=== PATIENT | female | born 2000 | race Caucasian/White ===

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

== ENCOUNTER 2022-02-12 08:00 | Outpatient (CLI) | payer MEDICAID ==
[2022-02-12 23:29] LABS: CHLAMYDIA TRACHOMATIS DNA NEGATIVE (NEGATIVE); NEISSERIA GONORRHOEAE DNA NEGATIVE (NEGATIVE); TRICHOMONAS VAGINALIS DNA NEGATIVE (NEGATIVE)
== END 2022-02-12 23:59 | disposition home or self-care (01) ==
LOC: LAB.WC 08:00
PROVIDERS: ATTEND Obstetrics & Gynecology
DX: R10.9 Unspecified abdominal pain (principal)
CPT/HCPCS: 87491; 87591; 87661

== ENCOUNTER 2022-03-16 09:52 | Outpatient (CLI) | payer MEDICAID | END 2022-03-16 09:53 | disposition short-term general hospital (02) | LOC: EMS 09:52 | DX: R10.32 Left lower quadrant pain (principal); R10.817 Generalized abdominal tenderness | CPT/HCPCS: A0425; A0427; A0999 ==

== ENCOUNTER 2022-03-24 10:37 | Outpatient (CLI) | payer MEDICAID | END 2022-03-24 10:38 | disposition home or self-care (01) | LOC: LAB 10:37 | PROVIDERS: ATTEND Obstetrics & Gynecology | DX: Z01.812 Encounter for preprocedural laboratory examination (principal); D27.1 Benign neoplasm of left ovary; Z20.822 Contact with and (suspected) exposure to COVID-19 ==

== ENCOUNTER 2022-03-25 07:28 | Day surgery (SDC) | payer MEDICAID ==
[2022-03-25] MEDS ORDERED: LACTATED RINGERS 1,000 ML IV ONE ×2 (07:34→10:27)
[2022-03-25 07:48] LABS: HCG UR QUAL NEGATIVE
[2022-03-25 08:18] LABS: BASOPHILS # (AUTO) 0.1 10^3/uL (0.0-0.1); BASOPHILS % (AUTO) 1.7 %; EOSINOPHILS # (AUTO) 0.9 10^3/uL (0.0-0.7); EOSINOPHILS % (AUTO) 12.8 %; HGB - HEMOGLOBIN 12.4 g/dL (12.0-16.0); LYMPHOCYTES # (AUTO) 1.8 10^3/uL (1.5-3.5); LYMPHOCYTES % (AUTO) 25.7 %; MEAN CORPUSCULAR HEMOGLOBIN 29.5 pg (27.0-31.0); MEAN CORPUSCULAR HGB CONC 33.5 g/dL (32.0-36.0); MEAN CORPUSCULAR VOLUME 87.9 fL (81.0-99.0); MEAN PLATELET VOLUME 9.7 fL (7.9-10.8); MONOCYTES # (AUTO) 0.7 10^3/uL (0.0-1.0); MONOCYTES % (AUTO) 9.8 %; NEUTROPHILS # (AUTO) 3.4 10^3/uL (1.5-6.6); NEUTROPHILS % (AUTO) 49.7 %; PLT - PLATELET COUNT 302 10^3/uL (130-450); RED BLOOD COUNT 4.21 10^6/uL (4.20-5.40); RED CELL DISTRIBUTION WIDTH 13.7 % (12.0-15.0); WHITE BLOOD COUNT 6.9 x10^3/uL (4.8-10.8)
[2022-03-25] MEDS ORDERED: PROPOFOL 200 MG/20 ML VIAL IVP ONE (08:18)
[2022-03-25] MEDS ORDERED: LIDOCAINE-MPF 2% 5 ML VIAL ONE (08:18)
[2022-03-25] MEDS ORDERED: ONDANSETRON 4 MG/2 ML VIAL ONE ×2 (08:19→08:36)
[2022-03-25] MEDS ORDERED: ROCURONIUM 50 MG/5 ML VIAL ONE (08:19)
[2022-03-25] MEDS ORDERED: MIDAZOLAM 2 MG/2 ML VIAL ONE (08:19)
[2022-03-25] MEDS ORDERED: fentaNYL 100 MCG/2 ML VIAL ONE ×2 (08:19→09:19)
[2022-03-25] MEDS ORDERED: DEXAMETHASONE 4 MG/ML VIAL ONE (08:19)
[2022-03-25] MEDS ORDERED: BUPIVACAINE 0.5% PF 30 ML VIAL ONE (08:24)
[2022-03-25] MEDS ORDERED: LIDOCAINE MPF 2%-EPI 1:200000 20 ML VIAL ONE (08:24)
--- NOTE | 2022-03-25 08:56 | ANESTHESIA ---
Pre-Anesthesia VS, & Labs - Diagnosis left dermoid cyst - Procedure laparoscopic ovarian cystectomy Vital Signs: Temp Pulse Resp BP Pulse Ox 36.3 C L 90 16 126/87 H 99 03/25/22 07:34 03/25/22 07:34 03/25/22 07:34 03/25/22 07:34 03/25/22 07:34 Height: 5 ft 8 in Weight (kg): 89.2 kg Body Mass Index: 29.9 BMI Classification: Overweight - NPO >8 hours - Is Patient ?: No - Lab Results Current Lab Results: Laboratory Tests 03/25/22 08:13: WBC 6.9, RBC 4.21, Hgb 12.4, Hct 37.0, MCV 87.9, MCH 29.5, MCHC 33.5, RDW 13.7, Plt Count 302, MPV 9.7, Neut # (Auto) 3.4, Lymph # (Auto) 1.8, [place] # (Auto) 0.7, Eos # (Auto) 0.9 H, Baso # (Auto) 0.1, Absolute Nucleated RBC 0.00, Nucleated RBC % 0.0 Fish Bones: 03/25/22 08:13 Home Medications and Allergies No Known Home Medications 11/01/21 Allergies/Adverse Reactions: Allergies Allergy/AdvReac Type Severity Reaction Status Date / Time amoxicillin Allergy Rash Verified 12/04/21 11:02 Anes History & Medical History - Anesthetic History Anesthesia Complications: reports: No previous complications Family history of Anesthesia Complications: Denies Family history of Malignant Hyperthermia: Denies - Medical History Cardiovascular: reports: None Pulmonary: reports: Asthma, Other (daily vape and cannibis use) Gastrointestinal: reports: None, Other Musculoskeletal: reports: None, Other Endocrine/Autoimmune: reports: None Blood Disorders: reports: None Skin: reports: Eczema Smoking Status: Current every day smoker (vapes and daily cannibis use) Psychosocial: reports: Depression, Anxiety, Cannabis, Hallucinogen History of Cancer?: No - Surgical History General: reports: 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 Gynecologic: reports: Other (ovarian cyst) Exam General: Alert, Oriented x3, Cooperative, No acute distress Dental: WNL Mouth Openin Fingerbreadth Neck Mobility: Normal Mallampati classification: II Thyromental Distance: 4-6 cm Respiratory: Lungs clear Cardiovascular: Regular rate Mental/Cognitive Status: Alert/Oriented X3 Cognitive Status: Within normal limits Plan Anesthesia Type: General Consent for Procedure(s) Verified and Reviewed: Yes Code Status: Attempt Resuscitation ASA classification: 2-Mild systemic disease Is this case an emergency?: No
[2022-03-25] MEDS ORDERED: KETAMINE 500 MG/10 ML VIAL ONE (09:06)
[2022-03-25] MEDS ORDERED: LIDOCAINE MPF 2%-EPI 1:200000 20 ML VIAL SUBQ ONE ×2 (09:37)
[2022-03-25] MEDS ORDERED: BUPIVACAINE 0.5% PF 30 ML VIAL SUBQ ONE ×2 (09:37)
[2022-03-25] MEDS ORDERED: HYDROcod/ACETAM 5/325 MG TABLET PO PRN (10:12)
[2022-03-25] MEDS ORDERED: SUGAMMADEX 200 MG/2 ML VIAL IVP ONE (10:16)
--- NOTE | 2022-03-25 10:25 | OPERATIVE REPORT ---
Operative Report - General Procedure Date: 03/25/22 Planned Procedure: Laparoscopic Left ovarian cystectomy Pre-Op Diagnosis: Left ovarian dermoid cyst Procedure Performed: Laparoscopic left ovarian cystectomy Post Op Diagnosis: Left ovarian dermoid cyst - Procedure Note Primary Surgeon: Remberto Henderson MD Secondary Surgeon: Sera Hall MD Anesthesia Provider: Ara Helm CRNA Anesthesia Technique: General ET tube Pathology: Left ovarian cyst IV Fluids (mL): 900 Estimated Blood Loss (mL): 20 Urine Output (mL): 350 Complications: None - Other Other Information/Narrative: History: Patient had ongoing pelvic pain, but a complicated by acute onset debilitating pelvic pain, imaging only showed a left ovarian cyst which could be causing intermittent torsion. We discussed that this may not be the source of her pain, but as was the only identified pathology, we discussed removal to see if this helps alleviate her pain. We did reiterate that our surgery is to remove the cyst, and not solve her pain, although we are hopeful it may affect the latter as well. Procedure summary Patient was taken to the OR where general anesthesia was obtained. She was prepped and draped in the usual sterile fashion. A Hernandez catheter was placed and SCDs were placed in the patient's legs. A sponge stick was placed in the vagina for uterine manipulation. After changing sterile attire, attention was turned to the abdomen. After 2 cc of local anesthesia was placed, an infraumbilical incision was used with a 5 mm port allowing access to the abdominal cavity which was viewed and found to be without injury. Insufflation was started with low flow and advanced to high flow after good visualization. Left and right lower quadrant trochars were then placed in a similar fashion. Review of the pelvis showed no significant adhesions or endometrial implants.The left ovarian cyst was elevated and Trendelenburg position was used. EndoShears scissors were used to incise the edge of the cyst wall, and this was dissected with combination of sharp and blunt dissection. Part way through, the cyst ruptured, and the contents was removed with the suction toll line inspector. The remainder of the cyst was dissected off the ovary. The left lower quadrant trocar was then replaced with a 10 mm trocar allowing an Endo Catch bag. The bag was deployed and the cyst was placed inside, the bag was closed, and the cyst and bag were removed from the abdomen. The pelvis was copiously irrigated. The ovarian tissue appeared hemostatic. Using a Wicho-Remigio closure device, the 10 mm port site was closed. The other trochars were removed and all laparoscopic instruments removed. Abdominal suture closed with 4-0 Monocryl. Sponge and needle counts were correct x 2. The patient was taken to PACU in stable condition.
[2022-03-25] MEDS: HYDROmorphone 1 MG/ML CARPUJECT ONE ×2 (10:42→10:51)
[2022-03-25] MEDS ORDERED: NALOXONE 0.4 MG/ML VIAL IVP PRN (11:04)
[2022-03-25] MEDS ORDERED: ONDANSETRON 4 MG/2 ML VIAL IVP PRN (11:04)
[2022-03-25] MEDS ORDERED: ATROPINE ABBOJECT 1 MG/10 ML SYRINGE IVP PRN (11:04)
[2022-03-25] MEDS ORDERED: HYDROmorphone 0.5 MG/0.5 ML SYRINGE IVP PRN (11:04)
[2022-03-25] MEDS ORDERED: MORPHINE 2 MG/ML CARPUJECT IVP PRN (11:04)
[2022-03-25] MEDS ORDERED: METOCLOPRAMIDE 10 MG/2 ML VIAL IVP PRN (11:04)
[2022-03-25] MEDS ORDERED: fentaNYL 100 MCG/2 ML VIAL IVP PRN (11:04)
[2022-03-25] MEDS ORDERED: ePHEDrine 50 MG/ML VIAL IVP PRN (11:04)
[2022-03-25] MEDS ORDERED: KETOROLAC 30 MG/ML VIAL IVP PRN (11:05)
[2022-03-25] MEDS ORDERED: LORazepam 2 MG/ML VIAL IVP PRN (11:06)
[2022-03-25] MEDS ORDERED: KETOROLAC 15 MG/ML VIAL ONE (11:07)
[2022-03-25] MEDS ORDERED: HYDROcod/ACETAM 5/325 MG TABLET ONE (11:55)
[2022-03-25] MEDS ORDERED: LACTATED RINGERS 1,000 ML IV SCH (12:00)
--- NOTE | 2022-03-25 12:05 | ANESTHESIA POST OP EVALUATION ---
Anesthesia Post Eval - Post Anesthesia Eval Vitals: Last Vital Signs Temp 37 C 03/25/22 11:21 Pulse 74 03/25/22 11:36 Resp 12 03/25/22 11:36 BP 106/87 H 03/25/22 11:36 Pulse Ox 100 03/25/22 11:36 CV Function Including HR & BP: Stable Pain Control: Satisfactory Nausea & Vomiting: Negative Mental Status: Baseline Respiratory Status: Airway Patent Hydration Status: Satisfactory Anesthesia Complications: None
[2022-03-25 12:10] VITALS: BP 112/67
== END 2022-03-25 07:29 | disposition home or self-care (01) ==
LOC: SDS 07:28
PROVIDERS: ATTEND Obstetrics & Gynecology
PROC: 0UB14ZZ Excision of Left Ovary, Percutaneous Endoscopic Approach (ICD-10-PCS; principal; 2022-03-25 08:30)
DX: D27.1 Benign neoplasm of left ovary (principal); Z32.02 Encounter for pregnancy test, result negative
CPT/HCPCS: 36415; 58662; 81025; 85025; 86850; 86900; 86901; A9270; J1170; J7120

== ENCOUNTER 2022-05-04 13:27 | Outpatient (CLI) | payer MEDICAID | END 2022-05-04 13:28 | disposition critical access hospital (66) | LOC: EMS 13:27 | DX: R10.84 Generalized abdominal pain (principal); R11.2 Nausea with vomiting, unspecified | CPT/HCPCS: A0425; A0427; A0999 ==

== ENCOUNTER 2022-05-04 13:52 | Emergency (ER) | payer MEDICAID ==
[2022-05-04] MEDS ORDERED: SODIUM CHLORIDE 0.9% 1,000 ML IV STA (13:57)
[2022-05-04] MEDS ORDERED: KETOROLAC 15 MG/ML VIAL IVP STA (13:57)
--- NOTE | 2022-05-04 14:03 | ED Physician Documentation ---
History of Present Illness - Stated complaint Stated Complaint: ABD PX - Additonal information Additional information: 21-year-old female presents to the emergency department for evaluation of diffuse abdominal pain that began about an hour and a half prior to arrival. She reports it was she was simply watching TV when the pain began. Past surgical history includes an appendectomy when she was 11. She also underwent a left dermoid cyst removal March 25 with our OB department. She reports that this pain feels similar to that. Some nausea and vomiting. No fevers. No dysuria. She is currently on OCP and doubts the possibility of . For EMS she was given Zofran and 2 mg of morphine which did relieve but not resolve her symptoms. On presentation she is alert well-appearing and appears to be in no acute distress Review of Systems Constitutional: denies: Fever, Chills Throat: reports: Reviewed and negative Cardiac: reports: Reviewed and negative Respiratory: reports: Reviewed and negative GI: reports: Abdominal Pain, Nausea, Vomiting. 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 Psych: Depression, Anxiety, Panic attacks, ADD/ADHD, Claustrophobia, Obsessive compulsive disorder, Other Musculoskeletal: None, Other Derm: Eczema - Past Surgical History Past Surgical History: Yes General: 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 /FOOD ORDER EXPEDITER: Other (ovarian cyst) - Present Medications Home Medications: Ambulatory Orders Medication Instructions Recorded Confirmed Acetaminophen [Acetaminophen Extra 1,000 mg PO Q8H PRN #60 tablet 03/25/22 Strength] Ibuprofen [Motrin] 600 mg PO Q6H PRN #30 tab 03/25/22 oxyCODONE [Roxicodone] 2.5 - 5 mg PO Q4H PRN #12 tablet 03/25/22 HYDROcod/ACETAM 5/325 [[place]cott 5/325] 1 tablet PO BID PRN #5 tablet 05/04/22 - Allergies Allergies/Adverse Reactions: Allergies Allergy/AdvReac Type Severity Reaction Status Date / Time amoxicillin Allergy Rash Verified 12/04/21 11:02 - Social History Does the pt smoke?: No Smoking Status: Current every day smoker (vapes and daily cannibis use) Does the pt drink ETOH?: No Does the pt have substance abuse?: Yes PD ED PE NORMAL - General General: Alert and oriented X 3, No acute distress, Well developed/nourished - HEENT HEENT: Atraumatic, Moist mucous membranes - Neck Neck: Supple, no meningeal sign, No adenopathy - Cardiac Cardiac: RRR - Respiratory Respiratory: No respiratory distress, Clear bilaterally - Abdomen Abdomen: Normal bowel sounds, Soft. No: Non tender (Benign abdominal exam. No focal tenderness elicited.) - Back Back: No CVA TTP, No spinal TTP - Derm Derm: Warm and dry - Extremities Extremities: No deformity - Neuro Neuro: Alert and oriented X 3, hose suspender cutter 2-12 intact Eye Opening: Spontaneous Motor: Obeys Commands Verbal: Oriented GCS Score: 15 Results - Vitals Vitals: Vital Signs - 24 hr 05/04/22 05/04/22 14:17 15:18 Temperature 36.6 C Heart Rate 52 L 80 Respiratory 18 18 Rate Blood Pressure 130/72 95/53 L O2 Saturation 100 Oxygen O2 Source Room air - Labs Labs: Laboratory Tests 05/04/22 05/04/22 05/04/22 13:58 13:58 14:21 WBC 6.5 RBC 4.16 L Hgb 11.9 L Hct 37.8 MCV 90.9 MCH 28.6 MCHC 31.5 L RDW 14.1 Plt Count 289 MPV 9.9 Neut # (Auto) 3.6 Lymph # (Auto) 1.5 [place] # (Auto) 0.6 Eos # (Auto) 0.7 Baso # (Auto) 0.1 Absolute Nucleated RBC 0.00 Nucleated RBC % 0.0 Sodium Potassium Chloride Carbon Dioxide Anion Gap BUN Creatinine Estimated GFR (MDRD) Glucose Calcium Total Bilirubin AST ALT Alkaline Phosphatase Total Protein Albumin Globulin Albumin/Globulin Ratio Lipase Urine Color YELLOW Urine Clarity CLEAR Urine pH 6.0 Ur Specific [place] 1.015 Urine Protein NEGATIVE Urine Glucose (UA) NEGATIVE Urine Ketones NEGATIVE Urine Occult Blood NEGATIVE Urine Nitrite NEGATIVE Urine Bilirubin NEGATIVE Urine Urobilinogen 0.2 (NORMAL) Ur Leukocyte Esterase NEGATIVE Ur Microscopic Review NOT INDICATED Urine Culture Comments NOT INDICATED Urine HCG, Qual NEGATIVE 05/04/22 14:21 WBC RBC Hgb Hct MCV MCH MCHC RDW Plt Count MPV Neut # (Auto) Lymph # (Auto) [place] # (Auto) Eos # (Auto) Baso # (Auto) Absolute Nucleated RBC Nucleated RBC % Sodium 138 Potassium 3.8 Chloride 111 Carbon Dioxide 22 Anion Gap 5.0 L BUN 13 Creatinine 0.7 Estimated GFR (MDRD) 108 Glucose 90 Calcium 8.8 Total Bilirubin 0.3 AST 14 ALT 11 Alkaline Phosphatase 50 Total Protein 6.7 Albumin 4.0 Globulin 2.7 Albumin/Globulin Ratio 1.5 Lipase 31 Urine Color Urine Clarity Urine pH Ur Specific [place] Urine Protein Urine Glucose (UA) Urine Ketones Urine Occult Blood Urine Nitrite Urine Bilirubin Urine Urobilinogen Ur Leukocyte Esterase Ur Microscopic Review Urine Culture Comments Urine HCG, Qual - Rads (name of study) Abd/pelvic CT Radiology: Final report received (No small bowel obstruction. No pathologic free fluid. There are suspected adnexal cystic lesions versus hydrosalpinx in the pelvis. ) Pelvic US: Radiology: See rad report, Other (Per glass technologist. No torsion. Likely right ovarian cyst.) PD MEDICAL DECISION MAKING - ED course Complexity details: reviewed results, re-evaluated patient, considered differential, d/w patient ED course: 21-year-old female presents to the emergency department for evaluation of generalized abdominal pain. She did undergo a left dermoid cystectomy on [address] Remberto Henderson. On presentation today though her abdominal exam was very benign, She felt that her symptoms were similar to the pain that she had with the dermoid cyst. 9 CBC and electrolytes showed no acute worrisome abnormalities. Her vital signs were unremarkable for age. Subsequent CT imaging suggested adnexal hydrosalpinx, However a pelvic ultrasound was more suggestive of a right ovarian cyst. The labs and imaging findings were discussed at length with the patient. She is quite upset that she could be developing PCOS and is fearful that she will be infertile. I am encouraging her to have very close follow-up with Dr. Henderson for longer-term management of her recurrent cyst. Made the recommendation for ibuprofen 600 mg with food 2-3 times a day. Very limited prescription of hydrocodone was sent for more severe pain. I am prescribing a short course of short-acting opioid pain medication for this patient. I have reviewed the patients ASSEMBLER PING PONG TABLE and no concerning findings were noted. I have discussed that the opioids are for short term therapy only, and will not be refilled from the ED. Departure - Departure Disposition: 01 Home, Self Care Clinical Impression: Right ovarian cyst Condition: Stable Record reviewed to determine appropriate education?: Yes Prescriptions: HYDROcod/ACETAM 5/325 [Prescott 5/325] 1 tablet PO BID PRN #5 tablet PRN Reason: Pain Comments: You are seen today in the emergency department for generalized abdominal pain. You did undergo a left dermoid cyst removal on 25 March. Today in the emergency Department your CBC and electrolytes were essentially normal. We did initially do a CT of the abdomen that suggested a condition called hydrosphalinx which is a fluid-filled collection within one of the adnexa. However a subsequent pelvic ultrasound does not find this and instead suggest that you have a right ovarian cyst. I encourage you to follow-up closely with Dr. Henderson to discuss longer-term management of your ovarian cyst. It is possible you are developing polycystic ovarian syndrome but there could be other causes or conditions to be evaluated for. A change in your OCP can also be helpful. In general take the ibuprofen 600 mg with food 2-3 times a day. For severe pain I have sent a very limited prescription of Prescott to the [facility] in [place]. Return to the ER if you develop fevers, have uncontrolled vomiting or change in your symptoms I am prescribing a short course of narcotic pain medication for you. These are potentially dangerous and addictive medications that should be used carefully. These medications may constipate you. Take an [id number]-svp-ixlcvtz stool softener (docusate) twice daily with plenty of water while taking these medications. If you go 24 hours without a bowel movement, take imwv-iap-mirfzxg miralax, per package instructions. Do not drink or drive while taking these medications. If you received narcotic or sedating medications while in the emergency department, do not drive for 24 hours. Store this medication in a safe, secure place and out of reach of children. It is a violation of federal law to give or sell this medication to another person or to use in a manner other than prescribed. The ED will not refill narcotic prescriptions, including prescriptions lost or stolen. To dispose of unwanted medications: 1. [facility] at [address] in [place] has a medication drop box. They accept prescription medications (in pill form) Thursday through Thursday 9:00 a.m. to 5:00 p.m. 2. The [facility] [employer] accepts prescription medications (in pill form only) for disposal year round. Call for more information. 3. Contact the [facility] for the next [facility] sponsored prescription drug collection event. , [phone], or [phone]; Note that many narcotic pain relievers also contain Tylenol/acetaminophen. Please ensure that your total dose of acetaminophen from all sources does not exceed 3 g (3000 mg) per day.
[2022-05-04 14:27] LABS: BASOPHILS # (AUTO) 0.1 10^3/uL (0.0-0.1); BASOPHILS % (AUTO) 1.5 %; EOSINOPHILS # (AUTO) 0.7 10^3/uL (0.0-0.7); EOSINOPHILS % (AUTO) 11.2 %; HCT - HEMATOCRIT 37.8 % (37.0-47.0); HGB - HEMOGLOBIN 11.9 g/dL (12.0-16.0); LYMPHOCYTES # (AUTO) 1.5 10^3/uL (1.5-3.5); LYMPHOCYTES % (AUTO) 22.3 %; MEAN CORPUSCULAR HEMOGLOBIN 28.6 pg (27.0-31.0); MEAN CORPUSCULAR HGB CONC 31.5 g/dL (32.0-36.0); MEAN CORPUSCULAR VOLUME 90.9 fL (81.0-99.0); MEAN PLATELET VOLUME 9.9 fL (7.9-10.8); MONOCYTES # (AUTO) 0.6 10^3/uL (0.0-1.0); MONOCYTES % (AUTO) 9.2 %; NEUTROPHILS # (AUTO) 3.6 10^3/uL (1.5-6.6); NEUTROPHILS % (AUTO) 55.6 %; PLT - PLATELET COUNT 289 10^3/uL (130-450); RED BLOOD COUNT 4.16 10^6/uL (4.20-5.40); RED CELL DISTRIBUTION WIDTH 14.1 % (12.0-15.0); WHITE BLOOD COUNT 6.5 x10^3/uL (4.8-10.8)
[2022-05-04 14:30] LABS: BILIRUBIN,URINE NEGATIVE (NEGATIVE); GLUCOSE, URINE (UA) NEGATIVE (NEGATIVE); KETONES,URINE (UA) NEGATIVE (NEGATIVE); LEUKOCYTE ESTERASE, URINE NEGATIVE (NEGATIVE); NITRITE,URINE NEGATIVE (NEGATIVE); OCCULT BLOOD,URINE NEGATIVE (NEGATIVE); PROTEIN,URINE NEGATIVE (NEGATIVE); UROBILINOGEN,URINE 0.2 (NORMAL) E.U./dL (NORMAL)
[2022-05-04 14:32] LABS: CLARITY,URINE CLEAR (CLEAR)
[2022-05-04 14:33] LABS: HCG UR QUAL NEGATIVE
[2022-05-04 14:41] LABS: ALBUMIN/GLOBULIN RATIO 1.5 (1.0-2.2); BILIRUBIN,TOTAL 0.3 mg/dL (0.2-1.0); CALCIUM 8.8 mg/dL (8.5-10.3); CREATININE 0.7 mg/dL (0.4-1.0); POTASSIUM 3.8 mmol/L (3.5-5.0); TOTAL PROTEIN 6.7 g/dL (6.7-8.2)
[2022-05-04] MEDS ORDERED: iohexoL-300 100 ML VIAL ONE (14:53)
[2022-05-04] MEDS ORDERED: iohexoL-300 100 ML VIAL IVP ONE (15:09)
--- NOTE | 2022-05-04 15:21 | CT Report ---
PROCEDURE: Abdomen/Pelvis W INDICATIONS: ITS.REASON: Diffuse abdominal pain, s/p L dermoid cyst removal CONTRAST: IV CONTRAST: Optiray 320 ml: 100 PO CONTRAST: *NO PO CONTRAST TECHNIQUE: After the administration of IV contrast, 5 mm thick sections acquired from the diaphragms to the symp hysis. 5 mm thick coronal and sagittal reformats were acquired. For radiation dose reduction, the f ollowing was used: automated exposure control, adjustment of mA and/or kV according to patient size. COMPARISON: Ultrasound 02/27/2022 FINDINGS: Image quality: Good Lower chest: Basal mild opacities and suspected atelectasis. Solid organs: The liver is unremarkable. Main portal vein is patent. Unremarkable gallbladder. No chary iary ductal dilation. No significant peripancreatic stranding. No splenomegaly. No adrenal nodules or hydronephrosis. Vessels and lymph nodes: No abdominal aortic aneurysm or pathologic adenopathy. Bowel and peritoneum: No small bowel obstruction. No convincing inflammatory changes. The appendix is not definitely seen. Body wall: No abscess or hematoma. Pelvis: Physiologic amount of free fluid. Suspected adnexal cystic lesions versus hydrosalpinx. Bladd er is unremarkable. Bones: No acute or suspicious osseous abnormality. IMPRESSION: No small bowel obstruction. No pathologic free fluid. There are suspected adnexal cystic lesions vers us hydrosalpinx in the pelvis. Consider ultrasound to further evaluate if necessary. The appendix is not definitely seen. No other acute abdominopelvic pathology identified by CT. Partially seen basal mild pulmonary airspace disease and/or atelectasis, correlate with any pulmonary symptoms. Reviewed by: Doron Mensah MD on 05/04/2022 3:19 PM PDT Approved by: Doron Mensah MD on 05/04/2022 3:19 PM PDT Station ID: [id number]
[2022-05-04 16:52] VITALS: BP 147/101
--- NOTE | 2022-05-04 16:58 | Ultrasound Report ---
PROCEDURE: Pelvic w/Transvag+Doppler Comp INDICATIONS: ITS.REASON: Adnexal cystic lesions versus hydrospalpinx TECHNIQUE: Real-time scanning was performed of the pelvic organs, with image documentation. Additional endovagi nal scanning was necessary due to incomplete visualization of the adnexal and endometrial structures by transabdominal scanning. Doppler interrogation was performed of the ovaries bilaterally. COMPARISON: Pelvic ultrasound, 02/27/2022. Correlation is made with the accompanying CT, 05/04/2022. FINDINGS: No pathologic free abdominal or pelvic fluid. Uterus: Uterus is normal in size at 7.5 x 3.3 x 5.4 cm. The endometrium measures 7 mm in combined t hickness. Ovaries: The right ovary measures 6.1 x 4.3 x 6.1 cm, with a calculated volume of 83.5 cc and the le ft ovary measures 2.7 x 1.3 x 3.5 cm, with a calculated volume of 6.5 cc. Within the right ovary, there is a cyst is seen with an associated daughter cyst and a septation that measures 5.4 x 4.1 x 5.4 cm. There are less than 12 follicles seen on each side. No adnexal masses are seen. Normal appearing arterial and venous waveforms are confirmed to each ovary.] Other: A moderate amount of free pelvic fluid is seen within the cul-de-sac. IMPRESSION: The previously seen right ovarian dermoid has been removed. There is a right ovarian cyst seen with a septation and a daughter cyst. A moderate amount of free pelvic fluid is seen. Negative for ovarian torsion. Note: Concordant preliminary findings given by the towel inspector upon the completion of the examination to Matteo Jeter. Reviewed by: Zen Mayberry MD on 05/04/2022 3:56 PM AMBER Approved by: Zen Mayberry MD on 05/04/2022 3:56 PM AMBER Station ID: [id number]
== END 2022-05-04 16:51 | disposition home or self-care (01) ==
LOC: EDUNIT# → ED 13:52
DX: D27.0 Benign neoplasm of right ovary (principal); F17.200 Nicotine dependence, unspecified, uncomplicated
CPT/HCPCS: 36415; 74177; 76830; 76856; 80053; 81003; 81025; 83690; 85025; 93975; 96374; 99284; Q9967; 81001; 87086

== ENCOUNTER 2022-06-14 01:48 | Emergency (ER) | payer MEDICAID ==
[2022-06-14] MEDS ORDERED: MORPHINE 2 MG/ML CARPUJECT IVP STA (02:09)
[2022-06-14] MEDS ORDERED: SODIUM CHLORIDE 0.9% 1,000 ML IV STA (02:09)
[2022-06-14] MEDS ORDERED: ONDANSETRON 4 MG/2 ML VIAL IVP STA (02:09)
[2022-06-14 02:13] LABS: BASOPHILS # (AUTO) 0.1 10^3/uL (0.0-0.1); BASOPHILS % (AUTO) 1.4 %; EOSINOPHILS # (AUTO) 0.9 10^3/uL (0.0-0.7); EOSINOPHILS % (AUTO) 11.8 %; HCT - HEMATOCRIT 35.1 % (37.0-47.0); HGB - HEMOGLOBIN 11.6 g/dL (12.0-16.0); LYMPHOCYTES # (AUTO) 2.2 10^3/uL (1.5-3.5); LYMPHOCYTES % (AUTO) 27.9 %; MEAN CORPUSCULAR HEMOGLOBIN 29.6 pg (27.0-31.0); MEAN CORPUSCULAR VOLUME 89.5 fL (81.0-99.0); MEAN PLATELET VOLUME 10.6 fL (7.9-10.8); MONOCYTES # (AUTO) 0.8 10^3/uL (0.0-1.0); MONOCYTES % (AUTO) 10.5 %; NEUTROPHILS # (AUTO) 3.8 10^3/uL (1.5-6.6); NEUTROPHILS % (AUTO) 48.3 %; PLT - PLATELET COUNT 283 10^3/uL (130-450); RED BLOOD COUNT 3.92 10^6/uL (4.20-5.40); RED CELL DISTRIBUTION WIDTH 13.2 % (12.0-15.0); WHITE BLOOD COUNT 7.9 x10^3/uL (4.8-10.8)
[2022-06-14] MEDS ORDERED: KETOROLAC 30 MG/ML VIAL IVP STA (02:14)
[2022-06-14 02:23] LABS: ALBUMIN 3.6 g/dL (3.2-5.5); ALBUMIN/GLOBULIN RATIO 1.1 (1.0-2.2); BILIRUBIN,TOTAL 0.4 mg/dL (0.2-1.0); CALCIUM 9.4 mg/dL (8.5-10.3); TOTAL PROTEIN 6.9 g/dL (6.7-8.2)
[2022-06-14] MEDS ORDERED: DROPERIDOL 5 MG/2 ML VIAL IVP STA (02:31)
[2022-06-14 02:36] VITALS: BP 123/99
[2022-06-14 02:36] LABS: BILIRUBIN,URINE NEGATIVE (NEGATIVE); GLUCOSE, URINE (UA) NEGATIVE (NEGATIVE); KETONES,URINE (UA) NEGATIVE (NEGATIVE); LEUKOCYTE ESTERASE, URINE NEGATIVE (NEGATIVE); NITRITE,URINE NEGATIVE (NEGATIVE); OCCULT BLOOD,URINE NEGATIVE (NEGATIVE); PH,URINE 7.5 PH (5.0-7.5); PROTEIN,URINE NEGATIVE (NEGATIVE); UROBILINOGEN,URINE 0.2 (NORMAL) E.U./dL (NORMAL)
[2022-06-14 02:38] LABS: CLARITY,URINE CLEAR (CLEAR); HCG UR QUAL NEGATIVE
[2022-06-14] MEDS ORDERED: iohexoL-300 100 ML VIAL ONE (02:46)
--- NOTE | 2022-06-14 02:55 | ED Physician Documentation ---
PD HPI ABD PAIN - Stated complaint Stated Complaint: AB PX N/V - Chief complaint Chief Complaint: Abd Pain - History obtained from History obtained from: Patient, EMS - Additional information Additional information: Patient is a 21-year-old female presenting for evaluation of generalized abdominal pain with nausea and vomiting that started around midnight. Patient reports having a dermoid cyst removed in March and since that time her usual abdominal pain has worsened. She reports having daily abdominal pain for over a year. She does admit to regular cannabis use. She was recently started on Bupropion for anxiety and depression.Her last menstrual cycle was 2 weeks ago. She was given 4 mg of IV Zofran which did help her nausea. Nothing seems to trigger these episodes of pain. She is not on anything to make them better. She denies recent illness. She denies abnormal vaginal bleeding or discharge. She is never seen a GI doctor for her symptoms in the past.She additionally reports prior history of appendectomy when she was 11 years old. Review of Systems Constitutional: denies: Fever Nose: denies: Congestion Throat: denies: Sore throat Cardiac: denies: Chest pain / pressure Respiratory: denies: Dyspnea GI: reports: Abdominal Pain, Nausea, Vomiting. 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 Psych: Depression, Anxiety, Bipolar disorder, Panic attacks, ADD/ADHD, Claustrophobia, Obsessive compulsive disorder, Other Musculoskeletal: None, Other Derm: Eczema - Past Surgical History Past Surgical History: Yes General: 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 /PROFESSOR OF PHYSICAL EDUCATION: Other - Present Medications Home Medications: Ambulatory Orders Medication Instructions Recorded Confirmed buPROPion [Wellbutrin Xl] 100 mg SL DAILY 06/14/22 06/14/22 - Allergies Allergies/Adverse Reactions: Allergies Allergy/AdvReac Type Severity Reaction Status Date / Time amoxicillin Allergy Rash Verified 06/14/22 02:02 - Social History Does the pt smoke?: No Smoking Status: Never smoker Does the pt drink ETOH?: No Does the pt have substance abuse?: Yes Substance Use and Type: Marijuana - Immunizations Immunizations are current?: Yes - POLST Patient has POLST: No PD ED PE NORMAL - General General: Alert and oriented X 3, No acute distress, Well developed/nourished - HEENT HEENT: Atraumatic, Moist mucous membranes - Neck Neck: Supple, no meningeal sign - Cardiac Cardiac: RRR, Strong equal pulses - Respiratory Respiratory: No respiratory distress, Clear bilaterally - Abdomen Abdomen: Normal bowel sounds, Soft, Non distended, Other (Generalized abdominal tenderness to palpation) - Derm Derm: Warm and dry - Neuro Neuro: Normal speech Results - Vitals Vitals: Vital Signs - 24 hr 06/14/22 06/14/22 02:04 02:36 Temperature 36.6 C Heart Rate 64 82 Respiratory 18 19 Rate Blood Pressure 105/79 123/99 H O2 Saturation 100 100 Oxygen O2 Source Room air - Labs Labs: Laboratory Tests 06/14/22 06/14/22 06/14/22 01:58 01:58 02:00 WBC 7.9 RBC 3.92 L Hgb 11.6 L Hct 35.1 L MCV 89.5 MCH 29.6 MCHC 33.0 RDW 13.2 Plt Count 283 MPV 10.6 Neut # (Auto) 3.8 Lymph # (Auto) 2.2 [place] # (Auto) 0.8 Eos # (Auto) 0.9 H Baso # (Auto) 0.1 Absolute Nucleated RBC 0.00 Nucleated RBC % 0.0 Sodium 139 Potassium 4.0 Chloride 105 Carbon Dioxide 26 Anion Gap 8.0 BUN 14 Creatinine 1.0 Estimated GFR (MDRD) 71 L Glucose 107 H Calcium 9.4 Total Bilirubin 0.4 AST 17 ALT 11 Alkaline Phosphatase 56 Total Protein 6.9 Albumin 3.6 Globulin 3.3 Albumin/Globulin Ratio 1.1 Lipase 30 Urine Color YELLOW Urine Clarity CLEAR Urine pH 7.5 Ur Specific [place] 1.010 Urine Protein NEGATIVE Urine Glucose (UA) NEGATIVE Urine Ketones NEGATIVE Urine Occult Blood NEGATIVE Urine Nitrite NEGATIVE Urine Bilirubin NEGATIVE Urine Urobilinogen 0.2 (NORMAL) Ur Leukocyte Esterase NEGATIVE Ur Microscopic Review NOT INDICATED Urine Culture Comments NOT INDICATED Urine HCG, Qual NEGATIVE PD MEDICAL DECISION MAKING - ED course Complexity details: reviewed results, re-evaluated patient, d/w patient ED course: Patient presenting for evaluation of abdominal pain with vomiting. Vital signs are stable and labs are unremarkable. The patient did receive Zofran prior to arrival. She additionally received IV morphine. After receiving morphine she reported feeling increasingly anxious and having more nausea and vomiting. Therefore I did give her a dose of droperidol which helped calm her down. We were able to obtain a CT scan. Her repeat abdominal exam was benign with no reproducible tenderness. Given that she came in during the overnight, radiology reports are provided from real rad can take several hours. Patient did not want to wait further in the ER for her CT report. She is aware that I have not yet ruled out a surgical Or potentially life altering diagnosis. She states that she is feeling anxious being in the emergency department and just wants to go home and sleep. I offered to give her additional medication, turned on the lights make her more comfortable in the room. She declined these interventions and is feeling better and would like to go home. She appears to have decision- making capacity.She does not appear altered or Intoxicated. She is ambulatory.She has clear speech. Patient aware that we will notify her of any significant results but otherwise that she should follow-up with her PCP and may need a GI referral. Departure - Departure Disposition: 07 Against Medical Advice Clinical Impression: Abdominal pain, Vomiting Comments: You have opted to leave prior to the results of your CT scan from the radiologist.Therefore I am unable to rule out a possible surgical process or Life-threatening condition. Your labs and urine are reassuring.If there is anything that requires emergent treatment on your CT scan I will notify you.Please call your primary care doctor on Thursday for close follow-up. You would likely benefit from a GI referral if there is nothing that needs more urgent Management on your CT scan. Discharge Date/Time: 06/14/22 03:37
[2022-06-14] MEDS ORDERED: iohexoL-300 100 ML VIAL IVP ONE (03:21)
--- NOTE | 2022-06-14 10:22 | CT Report ---
PROCEDURE: ABDOMEN/PELVIS W INDICATIONS: L sided abd pain CONTRAST: 100 ML OMNI 300 TECHNIQUE: After the administration of IV contrast, 5 mm thick sections acquired from the diaphragms to the symp hysis. 5 mm thick coronal and sagittal reformats were acquired. For radiation dose reduction, the f ollowing was used: automated exposure control, adjustment of mA and/or kV according to patient size. COMPARISON: 05/04/2022, 1. Correlation is also made with pelvis ultrasound, 05/04/2022 FINDINGS: Image quality: Excellent. ABDOMEN: Lung bases: Lung bases are clear. Heart size is normal. Solid organs: Liver and spleen are normal in size and enhancement. An accessory splenule is incide ntally noted along the hilum of the primary spleen. Gallbladder wall does not appear thickened. Biliary system is non dilated. Pancreas enhances normally. No adrenal nodules. Kidneys demonstrate normal size and enhancement, without hydronephrosis. Peritoneum and bowel: Bowel loops demonstrate normal wall thickness and caliber. No free air. Ther e is a moderate amount of stool seen within the proximal colon. Nodes and vessels: No retroperitoneal or mesenteric adenopathy by size criteria. Aorta and inferior vena cava are normal in size. Miscellaneous: No ventral hernias. PELVIS: Genitourinary: Bladder wall thickness is normal. The previously seen right adnexal cyst has resolve d. Mild cystic focus can be seen of the right adnexal region. A small amount of free fluid can be see n within the pelvis. Miscellaneous: No inguinal hernias or adenopathy. Bones: No suspicious bony lesions. No vertebral body compression fractures. IMPRESSION: A cause of left-sided abdominal pain is not seen. Resolution of the previously seen right adnexal cyst, with mild cystic focus seen on the right ovary. A small amount of free fluid is seen within the pelvis, which is considered to be within physiologic limits. Additional findings: Accessory splenule 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 Note: No significant discrepancy from the preliminary report. Reviewed by: Zen Mayberry MD on 06/14/2022 9:21 AM [facility] Approved by: Zen Mayberry MD on 06/14/2022 9:21 AM [facility] Station ID: [id number]
== END 2022-06-14 03:37 | disposition left against medical advice (07) ==
LOC: EDUNIT# → ED 01:48
DX: R10.84 Generalized abdominal pain (principal); R11.2 Nausea with vomiting, unspecified
CPT/HCPCS: 36415; 74177; 80053; 81003; 81025; 83690; 85025; 96374; 96375; 99284; 99285; Q9967; 81001; 87086

== ENCOUNTER 2022-08-02 05:42 | Outpatient (CLI) | payer MEDICAID | END 2022-08-02 05:43 | disposition critical access hospital (66) | LOC: EMS 05:42 | DX: R10.9 Unspecified abdominal pain (principal); R11.2 Nausea with vomiting, unspecified; R19.7 Diarrhea, unspecified | CPT/HCPCS: A0425; A0427; A0999 ==

== ENCOUNTER 2022-08-02 06:04 | Emergency (ER) | payer MEDICAID ==
[2022-08-02] MEDS ORDERED: DROPERIDOL 5 MG/2 ML VIAL IVP STA (06:22)
[2022-08-02 06:46] LABS: BASOPHILS # (AUTO) 0.1 10^3/uL (0.0-0.1); BASOPHILS % (AUTO) 1.1 %; EOSINOPHILS # (AUTO) 0.7 10^3/uL (0.0-0.7); EOSINOPHILS % (AUTO) 6.9 %; HCT - HEMATOCRIT 41.5 % (37.0-47.0); HGB - HEMOGLOBIN 13.6 g/dL (12.0-16.0); LYMPHOCYTES # (AUTO) 1.5 10^3/uL (1.5-3.5); LYMPHOCYTES % (AUTO) 14.9 %; MEAN CORPUSCULAR HEMOGLOBIN 28.6 pg (27.0-31.0); MEAN CORPUSCULAR HGB CONC 32.8 g/dL (32.0-36.0); MEAN CORPUSCULAR VOLUME 87.2 fL (81.0-99.0); MEAN PLATELET VOLUME 9.9 fL (7.9-10.8); MONOCYTES # (AUTO) 0.8 10^3/uL (0.0-1.0); MONOCYTES % (AUTO) 7.6 %; NEUTROPHILS # (AUTO) 6.9 10^3/uL (1.5-6.6); NEUTROPHILS % (AUTO) 69.4 %; PLT - PLATELET COUNT 339 10^3/uL (130-450); RED BLOOD COUNT 4.76 10^6/uL (4.20-5.40); RED CELL DISTRIBUTION WIDTH 13.2 % (12.0-15.0)
[2022-08-02 06:59] LABS: ALBUMIN/GLOBULIN RATIO 1.1 (1.0-2.2); BILIRUBIN,TOTAL 0.4 mg/dL (0.2-1.0); CALCIUM 9.7 mg/dL (8.5-10.3); CREATININE 0.9 mg/dL (0.4-1.0); POTASSIUM 3.6 mmol/L (3.5-5.0); TOTAL PROTEIN 7.6 g/dL (6.7-8.2)
[2022-08-02 07:45] VITALS: BP 135/82
--- NOTE | 2022-08-02 08:11 | ED Physician Documentation ---
PD HPI NVD - Stated complaint Stated Complaint: ABD PX - Chief complaint Chief Complaint: Abd Pain - History obtained from History obtained from: Patient - History of Present Illness Timing - onset: Enter time (399), Today Timing - duration: Hours Timing - details: Abrupt onset, Still present Associated symptoms: Abdominal pain, Other (vomiting) Contributing factors: Other (Uses cannabis regularly) Improved by: Vomiting, Meds Similar symptoms before: Diagnosis Recently seen: Not recently seen (Nausea and vomiting) - Additonal information Additional information: 21-year-old female with a prior history of nausea and vomiting and abdominal pain that presents to the emergency department again with an episode of nausea vomiting abdominal pain she was seen by Dr. Trujillo and administered Inapsine and at the time of my evaluation the patient is symptom-free and wants to go home. The patient admits to excessive use of cannabis and prior episodes. She has not heard of the syndrome of cannabis hyperemesis. 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 Psych: Depression, Anxiety, Bipolar disorder, Panic attacks, ADD/ADHD, Claustrophobia, Obsessive compulsive disorder, Other Musculoskeletal: None, Other Derm: Eczema - Past Surgical History Past Surgical History: Yes General: 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 /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 DESIGN TEACHER: Other - Present Medications Home Medications: Ambulatory Orders Medication Instructions Recorded Confirmed buPROPion [Wellbutrin Xl] 100 mg SL BID 06/14/22 08/02/22 Dicyclomine [Bentyl] 10 mg PO BID 08/02/22 08/02/22 - Allergies Allergies/Adverse Reactions: Allergies Allergy/AdvReac Type Severity Reaction Status Date / Time amoxicillin Allergy Rash Verified 08/02/22 06:13 - Social History Does the pt smoke?: No Smoking Status: Never smoker Does the pt drink ETOH?: No Does the pt have substance abuse?: Yes Substance Use and Type: Marijuana - Immunizations Immunizations are current?: Yes - POLST Patient has POLST: No PD ED PE NORMAL - Vitals Vital signs reviewed: Yes (Hypertensive mild) - General General: Alert and oriented X 3, No acute distress, Well developed/nourished - HEENT HEENT: Atraumatic, PERRL, EOMI - Neck Neck: Supple, no meningeal sign, No bony TTP - Cardiac Cardiac: RRR, No murmur - Respiratory Respiratory: No respiratory distress, Clear bilaterally - Abdomen Abdomen: Soft, Non tender - Back Back: No CVA TTP, No spinal TTP - Derm Derm: Normal color, Warm and dry, No rash - Extremities Extremities: No deformity, No edema - Neuro Neuro: Alert and oriented X 3, fractionation supervisor 2-12 intact, No motor deficit, No sensory deficit Eye Opening: Spontaneous Motor: Obeys Commands Verbal: Oriented GCS Score: 15 - Psych Psych: Normal mood, Normal affect Results - Vitals Vitals: Vital Signs - 24 hr 08/02/22 08/02/22 06:14 07:45 Temperature 36.6 C Heart Rate 97 91 Respiratory 24 21 Rate Blood Pressure 134/74 H 135/82 H O2 Saturation 100 100 Oxygen O2 Source Room air - Labs Labs: Laboratory Tests 08/02/22 08/02/22 06:40 06:40 WBC 10.0 RBC 4.76 Hgb 13.6 Hct 41.5 MCV 87.2 MCH 28.6 MCHC 32.8 RDW 13.2 Plt Count 339 MPV 9.9 Neut # (Auto) 6.9 H Lymph # (Auto) 1.5 [place] # (Auto) 0.8 Eos # (Auto) 0.7 Baso # (Auto) 0.1 Absolute Nucleated RBC 0.00 Nucleated RBC % 0.0 Sodium 139 Potassium 3.6 Chloride 108 Carbon Dioxide 17 L Anion Gap 14.0 H BUN 11 Creatinine 0.9 Estimated GFR (MDRD) 81 L Glucose 132 H Calcium 9.7 Total Bilirubin 0.4 AST 24 ALT 14 Alkaline Phosphatase 63 Total Protein 7.6 Albumin 4.0 Globulin 3.6 Albumin/Globulin Ratio 1.1 Lipase 32 PD Medical Decision Making - ED course Complexity details: reviewed results, re-evaluated patient, considered differential, d/w patient, d/w family Reviewed Lab Results: Reviewed a complete blood count including is a white blood cell count, hemoglobin and hematocrit, and platelets all in the normal range. We reviewed the patient's blood chemistries including electrolytes, kidney and liver function all again normal. ED course: This 21-year-old female presents again with nausea vomiting abdominal pain. She was seen by my partner Dr. Trujillo prior to my arrival to the emergency department and she had been administered both Inapsine and saline and felt much improved and wanted to go home. I reviewed the patient's history examined her and found her to be without concerning findings. I did discuss with the patient her use of cannabis and cannabis hyperemesis and this likely looks like an episode of cannabis hyperemesis. She responded well to the antidote with Inapsine. She is discharged to home. Departure - Departure Disposition: 01 Home, Self Care Clinical Impression: Cannabis hyperemesis syndrome concurrent with and due to cannabis abuse Condition: Stable Instructions: ED Nausea Vomiting Follow-Up: [facility] [Provider Group] Comments: Denise, today it looks like you have had an episode of cannabis hyperemesis. This happens occasionally with excessive cannabis use and usually results in bad abdominal pain and uncontrolled vomiting that does not respond to the usual nausea medicines. If this recurs we are here 24 hours a day and we would be happy to provide an antidote. Discharge Date/Time: 08/02/22 08:21
== END 2022-08-02 08:21 | disposition home or self-care (01) ==
LOC: EDUNIT# → ED 06:04
DX: F12.10 Cannabis abuse, uncomplicated (principal); R11.2 Nausea with vomiting, unspecified
CPT/HCPCS: 36415; 80053; 83690; 85025; 96374; 99283

== ENCOUNTER 2022-09-30 13:43 | Outpatient (CLI) | payer MEDICAID | END 2022-09-30 23:59 | disposition critical access hospital (66) | LOC: EMS 13:43 | DX: R10.30 Lower abdominal pain, unspecified (principal); R10.817 Generalized abdominal tenderness; R00.0 Tachycardia, unspecified | CPT/HCPCS: A0425; A0427; A0999 ==

== ENCOUNTER 2022-09-30 14:08 | Emergency (ER) | payer MEDICAID ==
[2022-09-30 14:22] VITALS: BP 137/100
[2022-09-30] MEDS ORDERED: KETOROLAC 30 MG/ML VIAL IVP STA (14:22)
[2022-09-30] MEDS ORDERED: DROPERIDOL 5 MG/2 ML VIAL IVP STA (14:22)
[2022-09-30 14:30] LABS: BILIRUBIN,URINE NEGATIVE (NEGATIVE); GLUCOSE, URINE (UA) NEGATIVE (NEGATIVE); KETONES,URINE (UA) NEGATIVE (NEGATIVE); LEUKOCYTE ESTERASE, URINE NEGATIVE (NEGATIVE); NITRITE,URINE NEGATIVE (NEGATIVE); OCCULT BLOOD,URINE NEGATIVE (NEGATIVE); PH,URINE 7.5 PH (5.0-7.5); PROTEIN,URINE NEGATIVE (NEGATIVE); UROBILINOGEN,URINE 0.2 (NORMAL) E.U./dL (NORMAL)
[2022-09-30 14:31] LABS: CLARITY,URINE CLEAR (CLEAR)
[2022-09-30 14:54] LABS: ALBUMIN 4.5 g/dL (3.2-5.5); ALBUMIN/GLOBULIN RATIO 1.5 (1.0-2.2); BILIRUBIN,TOTAL 0.3 mg/dL (0.2-1.0); CALCIUM 9.4 mg/dL (8.5-10.3); CREATININE 0.9 mg/dL (0.4-1.0); POTASSIUM 4.2 mmol/L (3.5-5.0); TOTAL PROTEIN 7.6 g/dL (6.7-8.2)
[2022-09-30 14:56] LABS: BASOPHILS # (AUTO) 0.1 10^3/uL (0.0-0.1); BASOPHILS % (AUTO) 1.5 %; EOSINOPHILS # (AUTO) 0.6 10^3/uL (0.0-0.7); HCT - HEMATOCRIT 41.4 % (37.0-47.0); HGB - HEMOGLOBIN 13.3 g/dL (12.0-16.0); LYMPHOCYTES % (AUTO) 17.2 %; MEAN CORPUSCULAR HEMOGLOBIN 29.3 pg (27.0-31.0); MEAN CORPUSCULAR HGB CONC 32.1 g/dL (32.0-36.0); MEAN CORPUSCULAR VOLUME 91.2 fL (81.0-99.0); MONOCYTES # (AUTO) 0.6 10^3/uL (0.0-1.0); MONOCYTES % (AUTO) 10.9 %; NEUTROPHILS # (AUTO) 3.5 10^3/uL (1.5-6.6); NEUTROPHILS % (AUTO) 60.1 %; PLT - PLATELET COUNT 323 10^3/uL (130-450); RED BLOOD COUNT 4.54 10^6/uL (4.20-5.40); RED CELL DISTRIBUTION WIDTH 13.6 % (12.0-15.0); WHITE BLOOD COUNT 5.9 x10^3/uL (4.8-10.8)
--- NOTE | 2022-09-30 16:20 | ED Physician Documentation ---
PD HPI ABD PAIN - Stated complaint Stated Complaint: ABD PX - Chief complaint Chief Complaint: Abd Pain - History obtained from History obtained from: Patient - History of Present Illness Timing - onset: Last night Timing - duration: Days (1) Timing - details: Gradual onset Pain level max: 8 Pain level now: 5 Quality: Aching, Pain Location: Suprapubic Improved by: No: Eating, Laying still, Vomiting, BM, Position, Meds, Other Worsened by: Moving, Palpation Associated symptoms: Nausea, Diarrhea, Vaginal dc (light pink). 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 Psych: Depression, Anxiety, Bipolar disorder, Panic attacks, ADD/ADHD, Claustrophobia, Obsessive compulsive disorder, Other Musculoskeletal: None, Other Derm: Eczema - Past Surgical History Past Surgical History: Yes General: 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 /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: Other - Present Medications Home Medications: Ambulatory Orders Medication Instructions Recorded Confirmed buPROPion [Wellbutrin Xl] 100 mg SL BID 06/14/22 08/02/22 Dicyclomine [Bentyl] 10 mg PO BID 08/02/22 08/02/22 - Allergies Allergies/Adverse Reactions: Allergies Allergy/AdvReac Type Severity Reaction Status Date / Time amoxicillin Allergy Rash Verified 09/30/22 14:18 - Social History Does the pt smoke?: No Smoking Status: Never smoker Does the pt drink ETOH?: No Does the pt have substance abuse?: Yes - Immunizations Immunizations are current?: Yes - POLST Patient has POLST: No PD ED PE NORMAL - Vitals Vital signs reviewed: Yes - General General: Alert and oriented X 3, No acute distress - HEENT HEENT: PERRL, Moist mucous membranes - Neck Neck: Supple, no meningeal sign - Cardiac Cardiac: RRR, No murmur, Strong equal pulses - Respiratory Respiratory: No respiratory distress, Clear bilaterally - Abdomen Abdomen: Soft, Non distended, Other (mild TTP lower abd) - Back Back: No CVA TTP, No spinal TTP - Derm Derm: Warm and dry - Neuro Neuro: Alert and oriented X 3 - Psych Psych: Normal mood, Normal affect Results - Vitals Vitals: Vital Signs - 24 hr 09/30/22 09/30/22 14:18 14:22 Temperature 36.8 C 36.8 C Heart Rate 100 100 Respiratory 16 16 Rate Blood Pressure 137/100 H 137/100 H O2 Saturation 100 100 Oxygen O2 Source Room air - Labs Labs: Laboratory Tests 09/30/22 09/30/22 09/30/22 14:16 14:34 14:34 WBC 5.9 RBC 4.54 Hgb 13.3 Hct 41.4 MCV 91.2 MCH 29.3 MCHC 32.1 RDW 13.6 Plt Count 323 MPV 10.0 Neut # (Auto) 3.5 Lymph # (Auto) 1.0 L [place] # (Auto) 0.6 Eos # (Auto) 0.6 Baso # (Auto) 0.1 Absolute Nucleated RBC 0.00 Nucleated RBC % 0.0 Sodium 137 Potassium 4.2 Chloride 105 Carbon Dioxide 23 Anion Gap 9.0 BUN 14 Creatinine 0.9 Estimated GFR (MDRD) 81 L Glucose 104 H Calcium 9.4 Total Bilirubin 0.3 AST 22 ALT 17 Alkaline Phosphatase 64 Total Protein 7.6 Albumin 4.5 Globulin 3.1 Albumin/Globulin Ratio 1.5 Lipase 31 Urine Color YELLOW Urine Clarity CLEAR Urine pH 7.5 Ur Specific [place] 1.015 Urine Protein NEGATIVE Urine Glucose (UA) NEGATIVE Urine Ketones NEGATIVE Urine Occult Blood NEGATIVE Urine Nitrite NEGATIVE Urine Bilirubin NEGATIVE Urine Urobilinogen 0.2 (NORMAL) Ur Leukocyte Esterase NEGATIVE Ur Microscopic Review NOT INDICATED Urine Culture Comments NOT INDICATED C. glabrata (PCR) C. krusei (PCR) Jade species DNA T. vaginalis (PCR) Bact Vaginosis (PCR) 09/30/22 16:15 WBC RBC Hgb Hct MCV MCH MCHC RDW Plt Count MPV Neut # (Auto) Lymph # (Auto) [place] # (Auto) Eos # (Auto) Baso # (Auto) Absolute Nucleated RBC Nucleated RBC % Sodium Potassium Chloride Carbon Dioxide Anion Gap BUN Creatinine Estimated GFR (MDRD) Glucose Calcium Total Bilirubin AST ALT Alkaline Phosphatase Total Protein Albumin Globulin Albumin/Globulin Ratio Lipase Urine Color Urine Clarity Urine pH Ur Specific [place] Urine Protein Urine Glucose (UA) Urine Ketones Urine Occult Blood Urine Nitrite Urine Bilirubin Urine Urobilinogen Ur Leukocyte Esterase Ur Microscopic Review Urine Culture Comments C. glabrata (PCR) NEGATIVE C. krusei (PCR) NEGATIVE Jade species DNA NEGATIVE T. vaginalis (PCR) NEGATIVE Bact Vaginosis (PCR) NEGATIVE PD Medical Decision Making - ED course Complexity details: reviewed results, re-evaluated patient, considered differential, d/w patient ED course: 21-year-old female with lower abdominal pain. Patient is well-appearing, nontoxic. Afebrile. CBC does not show any acute abnormalities. ER abdominal panel is without acute abnormality. Urinalysis is normal. Bacterial vaginitis panel is negative. She was given a dose of droperidol and Toradol. Pain resolved. Unclear etiology of her symptoms. Abdomen is soft, nontender nondistended on serial exam. We will have her follow-up with her doctor for further care. Patient counseled regarding signs and symptoms for which I believe and urgent re-evaluation would be necessary. Patient with good understanding of and agreement to plan and is comfortable going home at this time This document was made in part using voice recognition software. While efforts are made to proofread this document, sound alike and grammatical errors may occur. Departure - Departure Disposition: Home, Self Care Clinical Impression: Lower abdominal pain Condition: Good Instructions: ED Abdominal Pain Female Non-Specific Abdominal Pain Follow-Up: Krystyna Fuentes PA-C [Primary Care Provider] - Comments: Please follow-up with your doctor for further care. Please return if you worsen. Your laboratory testing and urinalysis do not show any acute abnormalities today. I will call you if the results of your bacterial vaginitis panel are positive. A gonorrhea and chlamydia screen was also sent as this is standard for pelvic pain with discharge. Discharge Date/Time: 09/30/22 16:33
[2022-09-30 18:12] LABS: BACTERIAL VAGINOSIS DNA NEGATIVE (NEGATIVE); CANDIDA GLABRATA DNA NEGATIVE (NEGATIVE); CANDIDA GROUP DNA NEGATIVE (NEGATIVE); CANDIDA KRUSEI DNA NEGATIVE (NEGATIVE); TRICHOMONAS VAGINALIS DNA NEGATIVE (NEGATIVE)
[2022-09-30 20:23] LABS: CHLAMYDIA TRACHOMATIS DNA NEGATIVE (NEGATIVE); NEISSERIA GONORRHOEAE DNA NEGATIVE (NEGATIVE)
== END 2022-09-30 16:33 | disposition home or self-care (01) ==
LOC: EDUNIT# → ED 14:08
DX: R10.30 Lower abdominal pain, unspecified (principal)
CPT/HCPCS: 36415; 80053; 81001; 81003; 81514; 83690; 85025; 87086; 87491; 87591; 87661; 96374; 96375; 99283

== ENCOUNTER 2022-10-16 18:11 | Outpatient (CLI) | payer MEDICAID | END 2022-10-16 23:59 | disposition critical access hospital (66) | LOC: EMS 18:11 | DX: R51.9 Headache, unspecified (principal); R11.10 Vomiting, unspecified | CPT/HCPCS: A0425; A0429; A0999 ==

== ENCOUNTER 2022-10-16 18:38 | Emergency (ER) | payer MEDICAID ==
[2022-10-16 18:56] VITALS: BP 121/77
--- NOTE | 2022-10-16 19:27 | ED Physician Documentation ---
History of Present Illness - Stated complaint Stated Complaint: HEAD PX/VOMITING - Chief complaint Chief Complaint: General - Additonal information Additional information: Patient states she "Presented because I was told I am too young to have a headache like this.". She then states that she wants to leave, she does not want any medication and she wants me to leave her alone. She refused to answer any other questions about her history or current illness. 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: Other - Present Medications Home Medications: Ambulatory Orders Medication Instructions Recorded Confirmed buPROPion [Wellbutrin Xl] 100 mg SL BID 06/14/22 08/02/22 Dicyclomine [Bentyl] 10 mg PO BID 08/02/22 08/02/22 - Allergies Allergies/Adverse Reactions: Allergies Allergy/AdvReac Type Severity Reaction Status Date / Time amoxicillin Allergy Rash Verified 09/30/22 14:18 - Social History Does the pt smoke?: No Smoking Status: Never smoker Does the pt drink ETOH?: No Does the pt have substance abuse?: Yes - Immunizations Immunizations are current?: Yes - POLST Patient has POLST: No PD ED PE NORMAL - Vitals Vital signs reviewed: Yes - General General: Alert and oriented X 3, No acute distress, Well developed/nourished, Other (No additional physical exam done per patient refusal) Results - Vitals Vitals: Vital Signs - 24 hr 10/16/22 18:53 Temperature 36.9 C Heart Rate 98 Respiratory 18 Rate Blood Pressure 121/77 O2 Saturation 100 Oxygen O2 Source Room air PD Medical Decision Making - ED course Complexity details: d/w patient ED course: Patient reportedly presented with a headache though she refuses to speak with me and asked to have her IV out and repeatedly states "why are you wasting my time." She does not want an evaluation and does not want any medication or treatment for her headache. The patient was brought in via EMS and I did encourage her to have an evaluation however she declined and subsequently left AGAINST MEDICAL ADVICE. Departure - Departure Disposition: Against Medical Advice Clinical Impression: Left against medical advice Comments: Patient left AGAINST MEDICAL ADVICE, no other discharge instructions given.
== END 2022-10-16 19:41 | disposition left against medical advice (07) ==
LOC: EDUNIT# → ED 18:38
DX: Z53.29 Procedure and treatment not carried out because of patient's decision for other reasons (principal)
CPT/HCPCS: 99281; 99282

== ENCOUNTER 2022-12-30 13:39 | Outpatient (CLI) | payer MEDICAID | END 2022-12-30 23:59 | disposition left against medical advice (07) | LOC: EMS 13:39 | DX: R10.31 Right lower quadrant pain (principal); R10.32 Left lower quadrant pain ==

== ENCOUNTER 2023-02-06 05:53 | Outpatient (CLI) | payer MEDICAID | END 2023-02-06 23:59 | disposition EMS.NT | LOC: EMS 05:53 | DX: R10.30 Lower abdominal pain, unspecified (principal) ==

== ENCOUNTER 2023-02-06 07:35 | Outpatient (CLI) | payer MEDICAID | END 2023-02-06 23:59 | disposition critical access hospital (66) | LOC: EMS 07:35 | DX: R10.84 Generalized abdominal pain (principal); R11.2 Nausea with vomiting, unspecified; R10.814 Left lower quadrant abdominal tenderness; R10.813 Right lower quadrant abdominal tenderness | CPT/HCPCS: A0425; A0427; A0999 ==

== ENCOUNTER 2023-05-10 01:37 | Outpatient (CLI) | payer MEDICAID | END 2023-05-10 01:38 | disposition critical access hospital (66) | LOC: EMS 01:37 | DX: R10.84 Generalized abdominal pain (principal); R11.0 Nausea | CPT/HCPCS: A0425; A0429; A0999 ==

== ENCOUNTER 2023-05-10 02:02 | Emergency (ER) | payer MEDICAID ==
[2023-05-10] MEDS ORDERED: DROPERIDOL 5 MG/2 ML VIAL IVP STA (02:39)
[2023-05-10] MEDS ORDERED: SODIUM CHLORIDE 0.9% 1,000 ML IV STA (02:39)
[2023-05-10 02:50] LABS: BASOPHILS # (AUTO) 0.1 10^3/uL (0.0-0.1); BASOPHILS % (AUTO) 0.8 %; EOSINOPHILS # (AUTO) 0.6 10^3/uL (0.0-0.7); EOSINOPHILS % (AUTO) 6.2 %; HCT - HEMATOCRIT 39.6 % (37.0-47.0); HGB - HEMOGLOBIN 12.8 g/dL (12.0-16.0); LYMPHOCYTES # (AUTO) 1.8 10^3/uL (1.5-3.5); LYMPHOCYTES % (AUTO) 19.7 %; MEAN CORPUSCULAR HEMOGLOBIN 29.4 pg (27.0-31.0); MEAN CORPUSCULAR HGB CONC 32.3 g/dL (32.0-36.0); MEAN CORPUSCULAR VOLUME 90.8 fL (81.0-99.0); MEAN PLATELET VOLUME 10.2 fL (7.9-10.8); MONOCYTES # (AUTO) 0.8 10^3/uL (0.0-1.0); MONOCYTES % (AUTO) 8.5 %; NEUTROPHILS % (AUTO) 64.7 %; PLT - PLATELET COUNT 319 10^3/uL (130-450); RED BLOOD COUNT 4.36 10^6/uL (4.20-5.40); RED CELL DISTRIBUTION WIDTH 13.7 % (12.0-15.0); WHITE BLOOD COUNT 9.3 x10^3/uL (4.8-10.8)
--- NOTE | 2023-05-10 03:19 | ED Physician Documentation ---
PD HPI ABD PAIN - Stated complaint Stated Complaint: ABD PX - Chief complaint Chief Complaint: Abd Pain - History obtained from History obtained from: Patient - Additional information Additional information: 22-year-old female with history of anxiety, cannabinoid dependence presents by private vehicle from home for generalized abdominal pain with nausea and vomiting. Patient states that she has had episodes of this nausea and vomiting for years and no one can find out the cause. Tonight it seemed even worse than usual with sweats accompanying the nausea and vomiting and so she decided to present for evaluation. Was scheduled for colonoscopy in the past, but said it was canceled because she could not tolerate drinking the prep fluids. 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 Psych: Depression, Anxiety, Bipolar disorder, Panic attacks, ADD/ADHD, Claustrophobia, Obsessive compulsive disorder, Other Musculoskeletal: None, Other Derm: Eczema - Past Surgical History Past Surgical History: Yes General: 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 /DIRECTOR 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: No Does the pt have substance abuse?: Yes Substance Use and Type: Marijuana - Immunizations Immunizations are current?: Yes - POLST Patient has POLST: No PD ED PE NORMAL - Vitals Vital signs reviewed: Yes - General General: Alert and oriented X 3, No acute distress, Well developed/nourished - HEENT HEENT: Atraumatic - Neck Neck: Supple, no meningeal sign - Cardiac Cardiac: RRR, Strong equal pulses - Respiratory Respiratory: No respiratory distress, Clear bilaterally - Abdomen Abdomen: Soft, Non tender, Non distended - Derm Derm: Normal color, Warm and dry, No rash - Extremities Extremities: No deformity, No tenderness to palpate, Normal ROM s pain - Neuro Neuro: Alert and oriented X 3, angiographer 2-12 intact, No motor deficit, Normal speech - Psych Psych: Normal mood, Normal affect Results - Vitals Vitals: Vital Signs - 24 hr 05/10/23 05/10/23 02:06 04:23 Temperature 36.4 C L Heart Rate 88 86 Respiratory 20 20 Rate Blood Pressure 125/70 139/95 H O2 Saturation 100 99 Oxygen O2 Source Room air - Labs Labs: Laboratory Tests 05/10/23 05/10/23 05/10/23 02:46 02:46 04:00 WBC 9.3 RBC 4.36 Hgb 12.8 Hct 39.6 MCV 90.8 MCH 29.4 MCHC 32.3 RDW 13.7 Plt Count 319 MPV 10.2 Neut # (Auto) 6.0 Lymph # (Auto) 1.8 [place] # (Auto) 0.8 Eos # (Auto) 0.6 Baso # (Auto) 0.1 Absolute Nucleated RBC 0.00 Nucleated RBC % 0.0 Sodium 141 Potassium 3.5 Chloride 109 Carbon Dioxide 24 Anion Gap 8.0 BUN 6 Creatinine 0.8 Estimated GFR (MDRD) 91 Glucose 103 Calcium 9.9 Magnesium 1.8 Total Bilirubin 0.4 AST 14 ALT 8 L Alkaline Phosphatase 58 Total Protein 7.3 Albumin 4.6 Globulin 2.7 Albumin/Globulin Ratio 1.7 Lipase 20 Urine Color YELLOW Urine Clarity CLEAR Urine pH 7.0 Ur Specific [place] <=1.005 Urine Protein NEGATIVE Urine Glucose (UA) NEGATIVE Urine Ketones 15 H Urine Occult Blood NEGATIVE Urine Nitrite NEGATIVE Urine Bilirubin NEGATIVE Urine Urobilinogen 0.2 (NORMAL) Ur Leukocyte Esterase NEGATIVE Ur Microscopic Review NOT INDICATED Urine Culture Comments NOT INDICATED Urine HCG, Qual NEGATIVE PD Medical Decision Making - ED course Complexity details: reviewed old records, reviewed results, re-evaluated patient, considered differential, d/w patient ED course: Episodic chronic abdominal pain. Has seen GI in the past, no definitive cause for pain has been found. Abdomen soft, no reproducible tenderness to papation. CBC unremarkable. Patient received droperidol and IV fluids, requesting to leave prior to treatment complete. Patient was counseled on the importance of following up with GI, recommended cessation of THC products. Bentyl and Carafate sent to pharmacy. Departure - Departure Disposition: 01 Home, Self Care Clinical Impression: Left before treatment completed Abdominal pain Qualifiers: Abdominal location: generalized Qualified Code(s): R10.84 - Generalized abdominal pain Condition: Stable Instructions: ED Abdominal Pain Female Non-Specific Abdominal Pain Prescriptions: Dicyclomine [Bentyl] 1 - 2 tab PO QID PRN #20 cap PRN Reason: Abdominal Pain Sucralfate [Carafate] 1 tablet PO ACHS #60 tablet Comments: You are seen today for abdominal pain. You are choosing to leave before your labs are completed. I highly recommend that you stop using THC products as this can worsen your abdominal pain. I also highly recommend that you call your GI doctor to schedule a follow-up appointment. Bentyl and Carafate have been sent to the [facility] pharmacy in [place]. Carafate can help to coat the stomach and Bentyl can help with abdominal spasms. Forms: PCP List Discharge Date/Time: 05/10/23 04:23
[2023-05-10 04:10] LABS: BILIRUBIN,URINE NEGATIVE (NEGATIVE); GLUCOSE, URINE (UA) NEGATIVE (NEGATIVE); KETONES,URINE (UA) 15 mg/dL (NEGATIVE); LEUKOCYTE ESTERASE, URINE NEGATIVE (NEGATIVE); NITRITE,URINE NEGATIVE (NEGATIVE); OCCULT BLOOD,URINE NEGATIVE (NEGATIVE); PROTEIN,URINE NEGATIVE (NEGATIVE); UROBILINOGEN,URINE 0.2 (NORMAL) E.U./dL (NORMAL)
[2023-05-10 04:16] LABS: HCG UR QUAL NEGATIVE
[2023-05-10 04:29] LABS: ALBUMIN 4.6 g/dL (3.2-5.5); ALBUMIN/GLOBULIN RATIO 1.7 (1.0-2.2); BILIRUBIN,TOTAL 0.4 mg/dL (0.2-1.0); CALCIUM 9.9 mg/dL (8.5-10.3); CREATININE 0.8 mg/dL (0.6-1.3); MAGNESIUM 1.8 mg/dL (1.7-2.3); POTASSIUM 3.5 mmol/L (3.5-4.5); TOTAL PROTEIN 7.3 g/dL (6.4-8.9)
[2023-05-10 04:33] VITALS: BP 139/95; O2SAT 99
[2023-05-10 05:09] LABS: CLARITY,URINE CLEAR (CLEAR)
== END 2023-05-10 04:23 | disposition home or self-care (01) ==
LOC: EDUNIT# → ED 02:02
DX: R10.84 Generalized abdominal pain (principal); Z53.21 Procedure and treatment not carried out due to patient leaving prior to being seen by health care provider
CPT/HCPCS: 36415; 80053; 81001; 81003; 81025; 83690; 83735; 85025; 87086; 93005; 96374; 99283

== ENCOUNTER 2023-06-22 13:54 | Outpatient (CLI) | payer MEDICAID | END 2023-06-22 13:55 | disposition left against medical advice (07) | LOC: EMS 13:54 | DX: R20.0 Anesthesia of skin (principal); W86.0XXA Exposure to domestic wiring and appliances, initial encounter; Y92.029 Unspecified place in mobile home as the place of occurrence of the external cause; R45.89 Other symptoms and signs involving emotional state; T76.31XA Adult psychological abuse, suspected, initial encounter ==

== ENCOUNTER 2023-07-22 12:50 | Outpatient (CLI) | payer MEDICAID | END 2023-07-22 12:51 | disposition critical access hospital (66) | LOC: EMS 12:50 | DX: R10.84 Generalized abdominal pain (principal); R11.2 Nausea with vomiting, unspecified | CPT/HCPCS: A0425; A0427; A0999 ==

== ENCOUNTER 2023-07-22 14:58 | Emergency (ER) | payer MEDICAID ==
--- NOTE | 2023-07-22 15:11 | ED Physician Documentation ---
PD HPI ABD PAIN - Stated complaint Stated Complaint: ABD PX - Chief complaint Chief Complaint: Abd Pain - History obtained from History obtained from: Patient - History of Present Illness Timing - onset: Today - Additional information Additional information: Patient presents via ambulance says that around 9 AM this morning she started experiencing sudden onset left lower quadrant pain. She states a year ago she had a left ovarian cyst removed she tried taking marijuana to help with the pain did not work she got 50 mg Toradol via EMS and route pain has now fully resolved her main concern is that she has a left ovarian cyst and is wanting imaging for this. 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 Psych: Depression, Anxiety, Bipolar disorder, Panic attacks, ADD/ADHD, Claustrophobia, Obsessive compulsive disorder, Other Musculoskeletal: None, Other Derm: Eczema - Past Surgical History Past Surgical History: Yes General: 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 /CHIP MUCKER: Other - Allergies Allergies/Adverse Reactions: Allergies Allergy/AdvReac Type Severity Reaction Status Date / Time amoxicillin Allergy Rash Verified 07/22/23 15:08 - Social History Does the pt smoke?: No Smoking Status: Never smoker Does the pt drink ETOH?: No Does the pt have substance abuse?: Yes - Immunizations Immunizations are current?: Yes - POLST Patient has POLST: No PD ED PE NORMAL - General General: Alert and oriented X 3 - Abdomen Abdomen: Normal bowel sounds, Soft, Non tender - Free text exam Free text exam: Left lower quadrant pain with palpation no rebound tenderness Results - Vitals Vitals: Vital Signs - 24 hr 07/22/23 15:05 Temperature 36.9 C Heart Rate 67 Respiratory 18 Rate Blood Pressure 146/84 H O2 Saturation 100 Oxygen O2 Source Room air PD Medical Decision Making - ED course ED course: Patient was seen here for left lower quadrant abdominal pain that has now fully resolved she denies any dysuria no fevers or chills at home and has NuvaRing for contraception. Patient was offered pelvic ultrasound for further evaluation of her left lower quadrant pain but she told that it was going to be a long wait patient came agitated kindly asked her to lower her voice patient became more agitated and reports that she will yell out if she has to and that she did not want to wait for ultrasound. She is safe for discharge given all abdominal pain is fully resolved, told to follow-up with primary care provider return precautions given. Departure - Departure Disposition: 01 Home, Self Care Clinical Impression: Abdominal pain Qualifiers: Abdominal location: left lower quadrant Qualified Code(s): R10.32 - Left lower quadrant pain Condition: Good Instructions: ED Abdominal Pain Female Non-Specific Abdominal Pain Comments: You were seen today for recurrent abdominal pain and ultrasound wasAnd was found to be overall normal. Unfortunately you did not want to wait for your test result please come back to the emergency department if you have any worsening abdominal pain and follow-up with your primary care provider soon as possible. Forms: PCP List
--- NOTE | 2023-07-22 16:59 | Ultrasound Report ---
PROCEDURE: Pelvic w/Doppler Complete INDICATIONS: L pelvic pain TECHNIQUE: Transabdominal pelvic ultrasound is performed. COMPARISON: None. FINDINGS: Uterus is within normal limits measuring 7.2 x 3.4 x 4.4 cm without focal mass. Endometrium is 4 mm i n thickness. Ovaries are normal in size with intact flow. Less than 12 follicular cysts are present b ilaterally. No free fluid. IMPRESSION: No acute process. Reviewed by: Pramod Valle MD on 07/22/2023 4:58 PM PST Approved by: Pramod aVlle MD on 07/22/2023 4:58 PM [facility] Station ID: [id number]
[2023-07-22 17:27] LABS: HCG UR QUAL NEGATIVE
[2023-07-22 17:33] VITALS: BP 151/82; O2SAT 98
== END 2023-07-22 17:30 | disposition home or self-care (01) ==
LOC: EDUNIT# → ED 14:58
DX: R10.32 Left lower quadrant pain (principal); Z87.448 Personal history of other diseases of urinary system
CPT/HCPCS: 81025; 93975; 99283; 99284

== ENCOUNTER 2023-08-01 11:01 | Outpatient (CLI) | payer MEDICAID | END 2023-08-01 11:02 | disposition critical access hospital (66) | LOC: EMS 11:01 | DX: R10.9 Unspecified abdominal pain (principal); R11.2 Nausea with vomiting, unspecified; R19.7 Diarrhea, unspecified | CPT/HCPCS: A0425; A0429; A0999 ==

== ENCOUNTER 2023-08-01 11:33 | Emergency (ER) | payer MEDICAID ==
[2023-08-01] MEDS ORDERED: SODIUM CHLORIDE 0.9% 1,000 ML IV STA (12:08)
[2023-08-01] MEDS ORDERED: DROPERIDOL 5 MG/2 ML VIAL IVP STA (12:08)
[2023-08-01 12:12] VITALS: O2SAT 100
--- NOTE | 2023-08-01 12:12 | ED Physician Documentation ---
History of Present Illness - Stated complaint Stated Complaint: LUQ PX/NVD - Chief complaint Chief Complaint: Abd Pain - History obtained from History obtained from: Patient, EMS - History of Present Illness Timing: Today Pain level max: 7 Pain level now: 0 - Additonal information Additional information: Patient is a 22-year-old female who presents to the emergency department complaining of left-sided abdominal pain nausea and vomiting. Feels similar to prior episodes of cannabinoid induced hyperemesis. She received fentanyl and Zofran with EMS. No fevers. Chills. She is currently on her menses and is on control. Had a negative test 10 days ago. Currently the abdominal pain, nausea and vomiting are fully resolved. No blood in the emesis. Had a small amount of diarrhea this morning. She states that when she smokes "flower" that she does not have the symptoms but when she smokes oil she develops the symptoms. Review of Systems Constitutional: denies: Fever, Chills GI: reports: Nausea, Vomiting. 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 Psych: Depression, Anxiety, Bipolar disorder, Panic attacks, ADD/ADHD, Claustrophobia, Obsessive compulsive disorder, Other Musculoskeletal: None, Other Derm: Eczema - Past Surgical History Past Surgical History: Yes General: 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 /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 MACHINE OPERATOR: Other - Present Medications Home Medications: Ambulatory Orders Medication Instructions Recorded Confirmed No Known Home Medications 08/01/23 08/01/23 - Allergies Allergies/Adverse Reactions: Allergies Allergy/AdvReac Type Severity Reaction Status Date / Time amoxicillin Allergy Rash Verified 08/01/23 12:04 - Social History Does the pt smoke?: No Smoking Status: Never smoker Does the pt drink ETOH?: No Does the pt have substance abuse?: Yes - Immunizations Immunizations are current?: Yes - POLST Patient has POLST: No PD ED PE NORMAL - Vitals Vital signs reviewed: Yes - General General: Alert and oriented X 3, No acute distress - HEENT HEENT: PERRL, Moist mucous membranes - Neck Neck: Supple, no meningeal sign - Cardiac Cardiac: RRR, Strong equal pulses - Respiratory Respiratory: No respiratory distress, Clear bilaterally - Abdomen Abdomen: Soft, Non tender, Non distended - Back Back: No CVA TTP, No spinal TTP - Derm Derm: Warm and dry - Extremities Extremities: No edema - Neuro Neuro: Alert and oriented X 3 - Psych Psych: Normal mood, Normal affect Results - Vitals Vitals: Vital Signs - 24 hr 08/01/23 08/01/23 12:01 13:07 Temperature 36.4 C L Heart Rate 77 100 Respiratory 20 16 Rate Blood Pressure 137/124 H 126/86 H O2 Saturation 100 100 Oxygen O2 Source Room air - Labs Labs: Laboratory Tests 08/01/23 11:40 Urine HCG, Qual NEGATIVE PD Medical Decision Making - ED course Complexity details: reviewed results, re-evaluated patient, considered differential, d/w patient ED course: Patient is well-appearing, nontoxic. Afebrile. Had an IV started with EMS, was given fentanyl and Zofran. She was given a dose of droperidol here as well as IV fluids. Patient feels much better. Tolerating p.o. without difficulty. Request to go home at this time. Will have her follow-up with her PCP for further care, recommend cessation of Cannabis. Patient counseled regarding signs and symptoms for which I believe and urgent re-evaluation would be necessary. Patient with good understanding of and agreement to plan and is comfortable going home at this time This document was made in part using voice recognition software. While efforts are made to proofread this document, sound alike and grammatical errors may occ ur. Departure - Departure Disposition: 01 Home, Self Care Clinical Impression: Cannabinoid hyperemesis syndrome Condition: Good Instructions: ED Nausea Vomiting Follow-Up: your,doctor as needed [Other] Comments: Drink plenty of fluids at home. Return if you worsen. Forms: PCP List Discharge Date/Time: 08/01/23 13:12
[2023-08-01 13:12] VITALS: BP 126/86
[2023-08-01 13:16] LABS: HCG UR QUAL NEGATIVE
== END 2023-08-01 13:12 | disposition home or self-care (01) ==
LOC: EDUNIT# → ED 11:33
DX: R11.2 Nausea with vomiting, unspecified (principal)
CPT/HCPCS: 81025; 96374; 99284